=== PATIENT | female | born 1950 | race Caucasian/White ===

== ENCOUNTER 2017-03-19 23:01 | Inpatient (IN) | payer MEDICAID, MEDICARE ==
[~2017-03-19] VITALS: Ht 167.6 cm; Wt 68.0 kg
[2017-03-19 23:39] LABS: CALCIUM 8.9 mg/dL (8.5-10.1); CARBON DIOXIDE 27.5 mmol/L (21-32); CHLORIDE SERUM 103 mmol/L (98-107); CREATININE SERUM 0.7 mg/dL (0.6-1.0); GFR1 > 60 mL/min; GLUCOSE SERUM 116 mg/dL (74-106); POTASSIUM SERUM 3.1 mmol/L (3.5-5.1); SODIUM SERUM 141 mmol/L (136-145)
[2017-03-19 23:44] LABS: ALBUMIN 3.8 g/dL (3.4-5.0); ALKALINE PHOSPHATASE 90 U/L (46-116); ALT/SGPT 32 U/L (14-59); AST/SGOT 20 U/L (15-37); BILIRUBIN TOTAL 0.24 mg/dL (0.20-1.00)
[2017-03-19 23:57] LABS: BASOPHIL % 0.4 % (0-2); PLATELET COUNT 271 x10^3mcL (130-400); RED CELL DISTRIBUTION WIDTH 16.2 % (11.5-14.5)
[2017-03-20] MEDS ORDERED: HYDROCHLOROTHIA25 MG PO (03:30)
[2017-03-20] MEDS ORDERED: LIPI20 PO (03:31)
[2017-03-20] MEDS ORDERED: GOOD SENSE OMEP20 MG PO (03:31)
[2017-03-20] MEDS ORDERED: LOTREL1 CA4 PO (03:31)
[2017-03-20] MEDS ORDERED: EFFEXOR-XR75 MG PO (03:32)
[2017-03-20] MEDS ORDERED: TOPROL XL25 MG PO (03:32)
[2017-03-20 04:32] LABS: CHOLESTEROL/HDL RATIO 1.8
[2017-03-20 04:40] LABS: microscopic required? NO
[2017-03-20 04:43] LABS: FREE T4 1.04 ng/dL (0.76-1.46); FREE THYROXINE INDEX 2.6 ug/dL (1.4-4.5); T4(THYROXINE) 8.6 ug/dL (4.7-13.3)
[2017-03-20 04:48] LABS: urine erythrocyte NEGATIVE (NEGATIVE)
[2017-03-20 04:49] LABS: T3 TOTAL 1.32 ng/mL
[2017-03-20 06:46] VITALS: BP 127/81
[2017-03-20 07:01] LABS: CALCIUM 8.4 mg/dL (8.5-10.1); CARBON DIOXIDE 26.5 mmol/L (21-32); CHLORIDE SERUM 104 mmol/L (98-107); CREATININE SERUM 0.6 mg/dL (0.6-1.0); GFR1 > 60 mL/min; GLUCOSE SERUM 108 mg/dL (74-106); MAGNESIUM 1.8 mg/dL (1.8-2.4); PHOSPHOROUS 3.4 mg/dL (2.5-4.9); POTASSIUM SERUM 3.2 mmol/L (3.5-5.1); SODIUM SERUM 141 mmol/L (136-145)
[2017-03-20 07:18] LABS: BASOPHIL % 0.6 % (0-2); PLATELET COUNT 250 x10^3mcL (130-400)
[2017-03-20 07:20] LABS: RED CELL DISTRIBUTION WIDTH 16.4 % (11.5-14.5)
[2017-03-20 09:20] VITALS: BP 118/79
[2017-03-20 14:30] VITALS: BP 119/78
[2017-03-20 17:37] LABS: CALCIUM 8.6 mg/dL (8.5-10.1); CARBON DIOXIDE 24.9 mmol/L (21-32); CHLORIDE SERUM 105 mmol/L (98-107); CREATININE SERUM 0.6 mg/dL (0.6-1.0); GFR1 > 60 mL/min; GLUCOSE SERUM 124 mg/dL (74-106); POTASSIUM SERUM 3.8 mmol/L (3.5-5.1); SODIUM SERUM 139 mmol/L (136-145)
[2017-03-20 18:12] VITALS: BP 138/92
[2017-03-20 20:52] VITALS: BP 126/85
[2017-03-21 06:00] VITALS: BP 136/93
[2017-03-21 07:01] LABS: BASOPHIL % 0.8 % (0-2); PLATELET COUNT 252 x10^3mcL (130-400)
[2017-03-21 07:07] LABS: RED CELL DISTRIBUTION WIDTH 16.5 % (11.5-14.5)
[2017-03-21 07:31] LABS: CALCIUM 8.3 mg/dL (8.5-10.1); CARBON DIOXIDE 24.4 mmol/L (21-32); CHLORIDE SERUM 108 mmol/L (98-107); CREATININE SERUM 0.6 mg/dL (0.6-1.0); GFR1 > 60 mL/min; GLUCOSE SERUM 105 mg/dL (74-106); MAGNESIUM 1.8 mg/dL (1.8-2.4); PHOSPHOROUS 3.2 mg/dL (2.5-4.9); POTASSIUM SERUM 3.6 mmol/L (3.5-5.1); SODIUM SERUM 141 mmol/L (136-145)
[2017-03-21 09:53] VITALS: BP 141/98
[2017-03-21 13:52] VITALS: BP 152/84
[2017-03-21] MEDS ORDERED: METFORMIN HCL500 MG PO (13:55)
[2017-03-21 14:24] VITALS: BP 152/84
[2017-03-21] MEDS ORDERED: PANTOPRAZOLE SO40 M1 PO (14:28)
== END 2017-03-21 15:00 | disposition home or self-care (01) | DRG 241 ==
LOC: ED 23:01 → MU 03-20 03:11 → DU 03-20 03:11 → MU 03-20 20:12
PROVIDERS: Emergency Medicine; Internal Medicine; ADMIT Family Medicine
PROC: 0DB68ZX Excision of Stomach, Via Natural or Artificial Opening Endoscopic, Diagnostic (ICD-10-PCS; principal; 2017-03-21 11:30)
DX: K29.01 Acute gastritis with bleeding (principal); I42.9 Cardiomyopathy, unspecified; E11.65 Type 2 diabetes mellitus with hyperglycemia; I10 Essential (primary) hypertension; D62 Acute posthemorrhagic anemia; E87.6 Hypokalemia; I45.10 Unspecified right bundle-branch block; K21.9 Gastro-esophageal reflux disease without esophagitis; K44.9 Diaphragmatic hernia without obstruction or gangrene; F32.9 Major depressive disorder, single episode, unspecified; F10.10 Alcohol abuse, uncomplicated; Z96.652 Presence of left artificial knee joint; Z68.24 Body mass index [BMI] 24.0-24.9, adult
CPT/HCPCS: 43235; 83880; 84439; C9113; G0480; J1200; J1610; J2250; J2310; J3010; J3480; J3490; J7030; Q0092; Q9967